=== PATIENT | male | born 1955 | race Caucasian/White ===

== ENCOUNTER 2018-11-13 12:45 | Emergency (ER) | payer BC ==
[~2018-11-13] VITALS: Ht 175.3 cm; Wt 68.2 kg
[2018-11-13] MEDS ORDERED: NS 1,000 ML IV ONE (13:30)
[2018-11-13] MEDS ORDERED: ISOVUE-370 76% 100ML VIAL (Q9967) As Ordered ONE (13:51)
--- NOTE | 2018-11-13 14:48 | REP ---
Maxillofacial CT study with IV contrast: History: Intranasal mass on the left with obstruction. CT contrast dose: 75 mL of intravenous Isovue [address] findings: There is complete opacification and diffuse bony sinus wall thickening affecting the maxillary sinus on the left side. Similarly, there is diffuse bony wall thickening and complete opacification in the left frontal sinus. This implies chronic sinusitis. There is nearly complete opacification of the left ethmoid air cells and there is evidence of chronic sinusitis with moderate mucosal thickening and bony sinus wall hypertrophy in the left sphenoid sinus. The right ethmoid, right sphenoid, and right maxillary sinuses are essentially clear. A small mucous retention cyst is seen in the medial wall of the right maxillary sinus. The right frontal sinus is not developed. Mastoid aeration is normal and symmetric. There is an expansile soft tissue mass in the left nasal cavity. There is an anterior component of this which is a polypoid heterogeneously enhancing lesion measuring 3.0 x 1.2 x 1.8 cm in diameter. This appears to produce extrinsic erosion of the left anterior nasal bone. The adjacent nasal septum is bowed to the right and may be eroded as well. There is confluent soft tissue opacity in the left nasal airway obscuring the borders of the left nasal turbinate soft tissues. There is evidence of an expansile soft tissue process in the posterior aspect of the left nasal cavity suggesting a nasal polyp in this location. The nasopharyngeal airway is obscured and appears to contain mucoid material and/or polypoid soft tissue. The soft palate appears unremarkable. The visualized hypopharynx is intact. The hard palate is not eroded. No intraorbital or intracranial abnormality is appreciated. The maxilla is edentulous. There is some vascular calcification in the distal carotid arteries. Impression: Findings most consistent with left nasal polyposis with chronic obstruction of the paranasal sinus drainage and chronic sinusitis involving the left maxillary, left ethmoid, left frontal, and left sphenoid sinuses. There are bony erosive and expansile changes in the left nasal cavity. The left ostiomeatal complex and naso-ethmoid recesses are obscured. Electronically Signed by Tesfaye Boyer MD 11/13/2018 04:05 P
[2018-11-13 15:14] VITALS: BP 162/75
[2018-11-13] MEDS ORDERED: PRED20TA PO (15:51)
[2018-11-13] MEDS ORDERED: AUGM875T28 PO (15:51)
[2018-11-13] MEDS ORDERED: FLON1SPR NARES (15:51)
--- NOTE | 2018-11-16 13:04 | ED PDOC ---
Post-Departure Follow-Up dr tatum faxed formal report of ct max fac for fu Kavya Camacho MD Nov 16, 2018 13:04
== END 2018-11-13 16:10 | disposition home or self-care (01) ==
LOC: M ED 12:45
DX: J33.9 Nasal polyp, unspecified (principal); F17.200 Nicotine dependence, unspecified, uncomplicated
CPT/HCPCS: 70487; 80047; 96360; 96361; 99284; Q9967